=== PATIENT | male | born 1940 | race Caucasian/White ===

== ENCOUNTER → 2023-09-26 09:28 | Outpatient (REF) | payer MEDICARE, BC, SELFPAY | LOC: RAD 09:28 | PROVIDERS: ATTENDING PHYSICIAN Internal Medicine Geriatric Medicine | DX: Z00.00 Encounter for general adult medical examination without abnormal findings (principal); M86.9 Osteomyelitis, unspecified; K51.40 Inflammatory polyps of colon without complications; I10 Essential (primary) hypertension; E78.2 Mixed hyperlipidemia; E03.9 Hypothyroidism, unspecified; N40.0 Benign prostatic hyperplasia without lower urinary tract symptoms; N40.1 Benign prostatic hyperplasia with lower urinary tract symptoms; G47.33 Obstructive sleep apnea (adult) (pediatric); K21.9 Gastro-esophageal reflux disease without esophagitis; E55.9 Vitamin D deficiency, unspecified; N52.9 Male erectile dysfunction, unspecified; Z13.89 Encounter for screening for other disorder; G89.29 Other chronic pain; M25.511 Pain in right shoulder; M25.572 Pain in left ankle and joints of left foot | CPT/HCPCS: 73030; 73610 ==

== ENCOUNTER → 2024-01-15 19:41 | Outpatient (REF) | payer MEDICARE, BC, SELFPAY | LOC: MRI 3T 19:41 | PROVIDERS: ATTENDING PHYSICIAN Internal Medicine Obesity Medicine; FAMILY PHYSICIAN Internal Medicine Geriatric Medicine | DX: M25.572 Pain in left ankle and joints of left foot (principal) | CPT/HCPCS: 73721 ==

== ENCOUNTER → 2024-02-28 18:25 | Outpatient (REF) | payer MEDICARE, BC, SELFPAY | LOC: MRI 3T 18:25 | PROVIDERS: ATTENDING PHYSICIAN Physical Medicine & Rehabilitation; FAMILY PHYSICIAN Internal Medicine Geriatric Medicine | DX: M54.16 Radiculopathy, lumbar region (principal) | CPT/HCPCS: 72148 ==